=== PATIENT | male | born 1930 | race Caucasian/White ===

== ENCOUNTER 2020-11-05 13:41 | Observation (INO) ==
[2020-11-05] MEDS ORDERED: 0.9 % Sodium Chloride 500 ML IVC ONE ×2 (14:23→17:03)
[2020-11-05 14:32] LABS: Basophils # 0.2 K/mcL (0.0-0.2); Basophils % 1.2 %; Eosinophils # 0.8 K/mcL (0.0-0.6); Eosinophils % 5.4 %; Hematocrit 51.3 % (37.5-50.1); Hemoglobin 16.2 g/dL (12.9-16.9); Immature Granulocytes % 0.5 % (0-4); Lymphocytes # 2.5 K/mcL (0.6-4.6); Mean Corpuscular HGB Conc 31.6 g/dL (31.6-35.5); Mean Corpuscular Hemoglobin 31.5 pg (28.0-33.3); Mean Corpuscular Volume 99.8 fL (83.0-100.0); Mean Platelet Volume 9.9 fL (9.4-12.4); Monocytes # 1.6 K/mcL (0.0-1.3); Monocytes % 10.9 %; Neutrophils # 9.7 K/mcL (1.6-8.9); Platelet Count 268 K/mcL (140-400); Red Blood Count 5.14 M/mcL (4.19-5.50); Red Cell Distribution Width 15.2 % (11.5-14.5); White Blood Count 14.9 K/mcL (4.3-11.1)
[2020-11-05] MEDS ORDERED: Cefepime HCl 2,000 MG in 0.9 % Sodium Chloride Mini Bag 100 ML IVPB STA (14:42)
[2020-11-05 15:46] LABS: Calcium 8.7 mg/dL (8.6-10.3); Potassium 3.7 mEq/L (3.5-5.1)
[2020-11-05 16:47] LABS: Adenovirus Not Detected (Not Detect); Bordetella Pertussis Not Detected (Not Detect); Chlamydophila pneumoniae Not Detected (Not Detect); Coronavirus 229E Not Detected (Not Detect); Coronavirus HKU1 Not Detected (Not Detect); Coronavirus NL63 Not Detected (Not Detect); Coronavirus OC43 Not Detected (Not Detect); Human Metapneumovirus Not Detected (Not Detect); Human Rhinovirus/Enterovirus Not Detected (Not Detect); Influenza A Subtype 2009 H1 Not Detected (Not Detect); Influenza B Not Detected (Not Detect); Parainfluenza Virus 1 Not Detected (Not Detect); Parainfluenza Virus 2 Not Detected (Not Detect); Parainfluenza Virus 3 Not Detected (Not Detect); Parainfluenza Virus 4 Not Detected (Not Detect); Respiratory Syncytial Virus Not Detected (Not Detect); SARS-CoV-2 Not Detected (Not Detect)
[2020-11-05 16:48] LABS: Mycoplasma pneumoniae Not Detected (Not Detect)
[2020-11-05] MEDS ORDERED: Perflutren Lipid Microsphere 1.3 ML in 0.9 % Sodium Chloride 8.7 ML IVP PRN (18:36)
[2020-11-05] MEDS ORDERED: Famotidine 20 MG/2 ML VIAL IVP ONE (18:39)
[2020-11-05] MEDS ORDERED: Ondansetron 4 MG/2 ML VIAL IVP PRN (18:44)
[2020-11-05] MEDS ORDERED: Naloxone 0.4 MG/ML INJ IVP PRN (18:44)
[2020-11-05 18:53] LABS: Bacteria,Urine Few per hpf (None-Few); Bilirubin,Urine Negative (Negative); Blood,Urine Negative (Negative); Clarity,Urine Turbid (Clear); Color,Urine Yellow (Yellow); Glucose,Urine (UA) Normal (Normal); Granular Casts,Urine Many per lpf (None Seen); Hyaline Casts,Urine Many per lpf (None Seen); Ketones,Urine Negative (Negative); Leukocyte Esterase,Urine Negative (Negative); Mucus,Urine Many per lpf (None-Few); Nitrite,Urine Negative (Negative); Protein,Urine 30 mg/dL (Neg-Trace); Specific Gravity,Urine 1.021 (1.010-1.025); Squamous Epithelial Cell,Urine Few per hpf (None-Few); Urobilinogen,Urine Normal (Normal); WBC,Urine 30-50 per hpf (0-3)
[2020-11-05] MEDS ORDERED: Aspirin 325 MG TABLET PO ONE (19:04)
[2020-11-05 20:52] LABS: INR 1.2; Prothrombin Time 13.6 Seconds (9.4-12.1)
[2020-11-05 20:54] LABS: Activated Partial Thrombo Time 25.4 Seconds (26.0-36.0)
[2020-11-05] MEDS ORDERED: Albumin 25% 25gram/100mL 25 GM/100 ML IV.SOLN IVPB ONE (21:58)
[2020-11-05] MEDS ORDERED: *HR* Heparin 5,000 UNIT/ML VIAL SQ SCH (22:00)
[2020-11-06 04:01] LABS: Hematocrit 41.6 % (37.5-50.1); Mean Corpuscular HGB Conc 32.7 g/dL (31.6-35.5); Mean Corpuscular Hemoglobin 32.4 pg (28.0-33.3); Mean Platelet Volume 9.8 fL (9.4-12.4); Platelet Count 216 K/mcL (140-400); Red Cell Distribution Width 15.1 % (11.5-14.5); White Blood Count 10.8 K/mcL (4.3-11.1)
[2020-11-06 04:02] LABS: Hemoglobin 13.6 g/dL (12.9-16.9)
[2020-11-06 04:09] LABS: INR 1.2; Prothrombin Time 13.9 Seconds (9.4-12.1)
[2020-11-06 04:12] LABS: Activated Partial Thrombo Time 26.1 Seconds (26.0-36.0)
[2020-11-06 04:24] LABS: Calcium 8.4 mg/dL (8.6-10.3); Chol/HDL Ratio 3.6 (0-4.9); Magnesium 2.1 mg/dL (1.6-2.6); Potassium 3.2 mEq/L (3.5-5.1)
[2020-11-06] MEDS: Famotidine 20 MG/2 ML VIAL IVP SCH ×2 (04:58→16:27)
[2020-11-06 10:23] LABS: Estimated Average Glucose 117 mg/dl; Hemoglobin A1C 5.7 %
[2020-11-06] MEDS ORDERED: Cefepime HCl 1,000 MG in 0.9 % Sodium Chloride Mini Bag 100 ML IVPB SCH (15:00)
[2020-11-06] MEDS: Budesonide/Formoterol 160/4.5 1 PUFF INH IH SCH (20:21)
[2020-11-06] MEDS: Gabapentin 300 MG CAPSULE PO SCH (20:44)
[2020-11-06] MEDS: Latanoprost 2.5 ML BOTTLE BOTH EYES SCH (20:45)
[2020-11-07 01:52] LABS: Hematocrit 42.8 % (37.5-50.1); Hemoglobin 13.8 g/dL (12.9-16.9); Mean Corpuscular HGB Conc 32.2 g/dL (31.6-35.5); Mean Corpuscular Hemoglobin 32.4 pg (28.0-33.3); Mean Corpuscular Volume 100.5 fL (83.0-100.0); Mean Platelet Volume 9.9 fL (9.4-12.4); Platelet Count 229 K/mcL (140-400); Red Blood Count 4.26 M/mcL (4.19-5.50); Red Cell Distribution Width 15.1 % (11.5-14.5); White Blood Count 8.6 K/mcL (4.3-11.1)
[2020-11-07 02:01] LABS: Calcium 8.5 mg/dL (8.6-10.3); Potassium 3.9 mEq/L (3.5-5.1)
[2020-11-07] MEDS: Famotidine 20 MG/2 ML VIAL IVP SCH (05:22)
[2020-11-07] MEDS: Gabapentin 300 MG CAPSULE PO SCH (07:55)
[2020-11-07] MEDS: Latanoprost 2.5 ML BOTTLE BOTH EYES SCH (07:55)
[2020-11-07] MEDS: Budesonide/Formoterol 160/4.5 1 PUFF INH IH SCH (08:11)
[2020-11-07] MEDS ORDERED: Apixaban 5 MG TABLET PO SCH ×2 (09:00→21:00)
[2020-11-07] MEDS ORDERED: Aspirin Enteric Coated 81 MG Tablet PO SCH (09:00)
[2020-11-07] MEDS ORDERED: FESOTERODINE FUMARATE 4 MG PO SCH (09:00)
[2020-11-07 10:58] VITALS: BP 112/67
== END 2020-11-07 12:50 | disposition home or self-care (01) ==
LOC: EMEROOARM 13:41 → 2ANU 13:41 → SUATTDRO 18:07 → 2ANU 18:58
PROVIDERS: ADMIT Student in an Organized Health Care Education/Training Program; ATTEND Family Medicine

== ENCOUNTER 2020-11-15 01:20 | Inpatient (IN) ==
[2020-11-15 02:09] LABS: Hematocrit 42.6 % (37.5-50.1); Hemoglobin 14.1 g/dL (12.9-16.9); Mean Corpuscular HGB Conc 33.1 g/dL (31.6-35.5); Mean Corpuscular Hemoglobin 32.9 pg (28.0-33.3); Mean Corpuscular Volume 99.3 fL (83.0-100.0); Mean Platelet Volume 9.6 fL (9.4-12.4); Platelet Count 243 K/mcL (140-400); Red Blood Count 4.29 M/mcL (4.19-5.50); Red Cell Distribution Width 15.2 % (11.5-14.5); White Blood Count 12.1 K/mcL (4.3-11.1)
[2020-11-15 02:29] LABS: BUN/Creatinine Ratio 28 (6-26); Blood Urea Nitrogen 29 mg/dL (8-23); Carbon Dioxide 27 mEq/L (23-29); Chloride 104 mEq/L (98-107); Glucose 171 mg/dL (70-105); Osmolality,Calculated 294 (280-300); Potassium 4.5 mEq/L (3.5-5.1); Sodium 137 mEq/L (136-145); Troponin I < 0.03 ng/mL (< 0.04); eGFR For African Americans > 60 (> 60); eGFR For Non-African Americans > 60 (> 60)
[2020-11-15] MEDS ORDERED: Azithromycin 500 MG in 0.9 % Sodium Chloride 250 ML IVPB ONE (02:52)
[2020-11-15] MEDS ORDERED: cefTRIAXone 1,000 MG in Water for inj. (sterile) 10 ML IVP ONE (02:52)
[2020-11-15] MEDS ORDERED: *HR* Labetalol 20 MG/4 ML SYRINGE IVP ONE (03:05)
[2020-11-15] MEDS ORDERED: Naloxone 0.4 MG/ML INJ IVP PRN (04:12)
[2020-11-15] MEDS ORDERED: Ondansetron 4 MG/2 ML VIAL IVP PRN (04:12)
[2020-11-15] MEDS: Azithromycin 250 MG TABLET PO SCH (09:13)
[2020-11-15] MEDS ORDERED: MethylPREDNISolone 40 MG/ML VIAL IVP ONE (14:44)
[2020-11-15] MEDS ORDERED: Ipratropium/Albuterol Neb 3 ML IH PRN (14:45)
[2020-11-15] MEDS: Acetaminophen 325 MG TABLET PO PRN (18:31)
[2020-11-15 18:40] LABS: Bilirubin,Urine Negative (Negative); Blood,Urine Negative (Negative); Clarity,Urine Clear (Clear); Color,Urine Yellow (Yellow); Glucose,Urine (UA) Normal (Normal); Ketones,Urine Negative (Negative); Leukocyte Esterase,Urine Negative (Negative); Nitrite,Urine Negative (Negative); Protein,Urine Trace mg/dL (Neg-Trace); Specific Gravity,Urine > 1.030 (1.010-1.025); Urobilinogen,Urine Normal (Normal)
[2020-11-15] MEDS: Apixaban 5 MG TABLET PO SCH (20:03)
[2020-11-16 02:45] LABS: Hemoglobin 13.9 g/dL (12.9-16.9); Mean Corpuscular HGB Conc 32.3 g/dL (31.6-35.5); Mean Corpuscular Hemoglobin 32.6 pg (28.0-33.3); Mean Corpuscular Volume 100.7 fL (83.0-100.0); Mean Platelet Volume 9.5 fL (9.4-12.4); Platelet Count 225 K/mcL (140-400); Red Blood Count 4.27 M/mcL (4.19-5.50); Red Cell Distribution Width 15.3 % (11.5-14.5); White Blood Count 13.6 K/mcL (4.3-11.1)
[2020-11-16 03:03] LABS: BUN/Creatinine Ratio 27 (6-26); Blood Urea Nitrogen 25 mg/dL (8-23); Calcium 8.9 mg/dL (8.6-10.3); Carbon Dioxide 27 mEq/L (23-29); Chloride 103 mEq/L (98-107); Glucose 149 mg/dL (70-105); Osmolality,Calculated 287 (280-300); Potassium 4.7 mEq/L (3.5-5.1); Sodium 135 mEq/L (136-145); eGFR For African Americans > 60 (> 60); eGFR For Non-African Americans > 60 (> 60)
[2020-11-16] MEDS: cefTRIAXone 1,000 MG in Water for inj. (sterile) 10 ML IVP SCH (07:45)
[2020-11-16] MEDS: predniSONE 20 MG TABLET PO SCH (07:46)
[2020-11-16] MEDS: Azithromycin 250 MG TABLET PO SCH (07:46)
[2020-11-16] MEDS: Apixaban 5 MG TABLET PO SCH (07:46)
[2020-11-16] MEDS: Acetaminophen 325 MG TABLET PO PRN (07:48)
[2020-11-16] MEDS ORDERED: Azithromycin 500 MG in D5% in Water 250 ML IVPB SCH (08:00)
[2020-11-16] MEDS: polyethylene glycoL 3350 17 GM POWD.PACK PO SCH (12:06)
[2020-11-16] MEDS: lisinopriL 20 MG TABLET PO SCH (18:27)
[2020-11-16] MEDS: Latanoprost 2.5 ML BOTTLE BOTH EYES SCH (21:34)
[2020-11-16] MEDS: Melatonin 3 MG TABLET PO SCH (21:34)
[2020-11-16] MEDS: Gabapentin 300 MG CAPSULE PO SCH (21:34)
[2020-11-16] MEDS: Budesonide/Formoterol 160/4.5 1 PUFF INH IH SCH (22:00)
[2020-11-17] MEDS: Gabapentin 300 MG CAPSULE PO SCH ×2 (08:14→21:35)
[2020-11-17] MEDS: cefTRIAXone 1,000 MG in Water for inj. (sterile) 10 ML IVP SCH (08:14)
[2020-11-17] MEDS: allopurinoL 100 MG TABLET PO SCH (08:14)
[2020-11-17] MEDS: lisinopriL 20 MG TABLET PO SCH (08:14)
[2020-11-17] MEDS: predniSONE 20 MG TABLET PO SCH (08:14)
[2020-11-17] MEDS: Azithromycin 250 MG TABLET PO SCH (08:15)
[2020-11-17] MEDS: Aspirin Enteric Coated 81 MG Tablet PO SCH (08:15)
[2020-11-17] MEDS: polyethylene glycoL 3350 17 GM POWD.PACK PO SCH (08:15)
[2020-11-17] MEDS: Latanoprost 2.5 ML BOTTLE BOTH EYES SCH ×2 (08:16→21:35)
[2020-11-17] MEDS ORDERED: LINACLOTIDE 145 MCG PO SCH (09:00)
[2020-11-17] MEDS: Budesonide/Formoterol 160/4.5 1 PUFF INH IH SCH ×2 (10:32→20:22)
[2020-11-17] MEDS: Ipratropium/Albuterol Neb 3 ML IH SCH ×3 (11:59→20:22)
[2020-11-17] MEDS: *HR* Enoxaparin 40 MG/0.4 ML SYRINGE SQ SCH (14:10)
[2020-11-17] MEDS: Melatonin 3 MG TABLET PO SCH (21:35)
[2020-11-18] MEDS: Ipratropium/Albuterol Neb 3 ML IH SCH ×4 (00:05→11:11)
[2020-11-18 06:13] LABS: BUN/Creatinine Ratio 37 (6-26); Blood Urea Nitrogen 38 mg/dL (8-23); Calcium 8.6 mg/dL (8.6-10.3); Carbon Dioxide 31 mEq/L (23-29); Chloride 103 mEq/L (98-107); Glucose 107 mg/dL (70-105); Osmolality,Calculated 294 (280-300); Potassium 4.7 mEq/L (3.5-5.1); Sodium 137 mEq/L (136-145); eGFR For African Americans > 60 (> 60); eGFR For Non-African Americans > 60 (> 60)
[2020-11-18] MEDS: *HR* Enoxaparin 40 MG/0.4 ML SYRINGE SQ SCH (06:40)
[2020-11-18 06:43] LABS: Hematocrit 36.9 % (37.5-50.1); Hemoglobin 11.7 g/dL (12.9-16.9); Mean Corpuscular HGB Conc 31.7 g/dL (31.6-35.5); Mean Corpuscular Volume 100.8 fL (83.0-100.0); Mean Platelet Volume 9.9 fL (9.4-12.4); Platelet Count 231 K/mcL (140-400); Red Blood Count 3.66 M/mcL (4.19-5.50); Red Cell Distribution Width 15.6 % (11.5-14.5); White Blood Count 17.2 K/mcL (4.3-11.1)
[2020-11-18] MEDS: Budesonide/Formoterol 160/4.5 1 PUFF INH IH SCH (07:45)
[2020-11-18 09:26] VITALS: BP 113/69
[2020-11-18] MEDS: predniSONE 20 MG TABLET PO SCH (09:35)
[2020-11-18] MEDS: Aspirin Enteric Coated 81 MG Tablet PO SCH (09:35)
[2020-11-18] MEDS: Gabapentin 300 MG CAPSULE PO SCH (09:36)
[2020-11-18] MEDS: allopurinoL 100 MG TABLET PO SCH (09:36)
[2020-11-18] MEDS: Azithromycin 250 MG TABLET PO SCH (09:37)
[2020-11-18] MEDS: lisinopriL 20 MG TABLET PO SCH (09:37)
[2020-11-18] MEDS: cefTRIAXone 1,000 MG in Water for inj. (sterile) 10 ML IVP SCH (09:38)
[2020-11-18] MEDS: polyethylene glycoL 3350 17 GM POWD.PACK PO SCH (09:40)
[2020-11-18] MEDS: Latanoprost 2.5 ML BOTTLE BOTH EYES SCH (09:42)
[2020-11-18] MEDS ORDERED: FLU Vac QV 20-21 (6Month+)/PF 0.5 ML SYRINGE IM ONE (13:35)
== END 2020-11-18 14:00 | disposition home health service (06) | DRG 193 ==
LOC: 3ANU 01:20 → EMEROOARM 01:20 → SUATTDRO 03:34 → 3ANU 04:25
PROVIDERS: ADMIT Family Medicine; ATTEND Internal Medicine